=== PATIENT | female | born 1975 | race Caucasian/White ===

== ENCOUNTER 2020-05-05 08:53 | Emergency (ER) | payer BC ==
[2020-05-05] MEDS ORDERED: Sodium Chloride 0.9% 10 ML Syringe FLUSH PRN (09:30)
[2020-05-05] MEDS ORDERED: Ketorolac 30 MG/ML SDV IVPUSH ONE (09:31)
[2020-05-05] MEDS ORDERED: diphenhydrAMINE 50 MG/ML SDV IVPUSH ONE (09:32)
[2020-05-05] MEDS ORDERED: Prochlorperazine 10 MG/2 ML SDV IVPUSH ONE (09:32)
--- NOTE | 2020-05-05 10:59 | EDM.PDOC ---
ED HPI GENERAL MEDICAL PROBLEM - General Chief Complaint: Respiratory Problem Stated Complaint: HEADACHE,COUGH,CHEST TIGHTNESS Time Seen by Provider: 05/05/20 09:09 Source of Information: Reports: Patient History Limitations: Reports: No Limitations - History of Present Illness INITIAL COMMENTS - FREE TEXT/NARRATIVE: The patient presents with chest pain and a cough. This started about 2 weeks ago with the cough. The past couple of days she had some chest pain. She has no history of heart problems. She also has a headache for about a week. She has no numbness or weakness. She is not sure if she has been exposed to COVID 19. She does work at a school. She does have a history of asthma and she is using her inhaler more often. She denies fever or chills. Onset: Gradual Duration: Week(s): Location: Reports: Chest Quality: Reports: Other (tightness) Severity: Mild Improves with: Reports: None Worsens with: Reports: None Associated Symptoms: Reports: Chest Pain, Cough. Denies: Confusion, Fever/Chills, Nausea/Vomiting, Shortness of Breath Headache Pain Score (Numeric/FACES): 6 - Related Data Allergies Allergy/AdvReac Type Severity Reaction Status Date / Time No Known Allergies Allergy Verified 05/05/20 09:11 Home Meds: Home Meds Albuterol [Ventolin HFA] 2 puff INH Q4H PRN 12/06/13 [History] Past Medical History - Past Health History Medical/Surgical History: Denies Medical/Surgical History HEENT History: Reports: Impaired Vision Gastrointestinal History: Reports: Colon Polyp Psychiatric History: Reports: Anxiety, Depression - Past Surgical History GI Surgical History: Reports: Colonoscopy Female Surgical History: Reports: Section Social & Family History - Tobacco Use Smoking Status *Q: Former Smoker Used Tobacco, but Quit: Yes Month/Year Tobacco Last Used: 2019 - Caffeine Use Caffeine Use: Reports: Tea - Recreational Drug Use Recreational Drug Use: No ED ROS GENERAL - Review of Systems Review Of Systems: See Below Constitutional: Reports: No Symptoms HEENT: Reports: No Symptoms Respiratory: Reports: Cough. Denies: Shortness of Breath Cardiovascular: Reports: No Symptoms Endocrine: Reports: No Symptoms GI/Abdominal: Reports: No Symptoms : Reports: No Symptoms ED EXAM, GENERAL - Physical Exam Exam: See Below Exam Limited By: No Limitations General Appearance: Alert, No Apparent Distress Ears: Normal External Exam Nose: Normal Inspection Head: Atraumatic, Normocephalic Neck: Normal Inspection Respiratory/Chest: No Respiratory Distress, Lungs Clear, Normal Breath Sounds Cardiovascular: Regular Rate, Rhythm, No Edema, No Murmur GI/Abdominal: Soft, Non-Tender, No Organomegaly, No Mass Extremities: Normal Inspection Neurological: Alert, Oriented, No Motor/Sensory Deficits EKG INTERPRETATION EKG Date: 05/05/20 Time: 09:56 Rhythm: Other (sinus bradycardia) Rate (Beats/Min): 53 [place]: Normal P-Wave: Present QRS: Normal ST-T: Normal QT: Normal Course - Vital Signs Last Recorded V/S: Last Vital Signs Temp 97.0 F 05/05/20 09:07 Pulse 60 05/05/20 10:46 Resp 16 05/05/20 09:07 BP 115/77 05/05/20 09:07 Pulse Ox 96 05/05/20 10:46 - Orders/Labs/Meds Orders: Active Orders 24 hr Category Date Time Status Cardiac Monitoring [RC] . DIRECTED Care 05/05/20 09:30 Active EKG Documentation Completion [RC] STAT Care 05/05/20 09:31 Active Oxygen Therapy [RC] PRN Care 05/05/20 09:30 Active Peripheral IV Care [RC] . DIRECTED Care 05/05/20 09:31 Active Chest 1V Frontal [CR] Stat Exams 05/05/20 09:31 Taken CORONAVIRUS COVID-19 PCR PHL Stat Lab 05/05/20 09:31 Ordered Sodium Chloride 0.9% [Saline Flush] Med 05/05/20 09:30 Active 10 ml FLUSH ASDIRECTED PRN Peripheral IV Insertion Adult [OM.PC] Stat Oth 05/05/20 09:30 Ordered Medication Orders Sodium Chloride (Saline Flush) 10 ml FLUSH ASDIRECTED PRN PRN Reason: Keep Vein Open Last Admin: 05/05/20 09:52 Dose: 10 ml Documented by: JAMES Labs: Laboratory Tests 05/05/20 05/05/20 05/05/20 Range/Units 09:50 09:50 09:50 WBC 4.45 (3.98-10.04) K/mm3 RBC 4.45 (3.98-5.22) M/mm3 Hgb 14.0 (11.2-15.7) gm/dl Hct 41.4 (34.1-44.9) % MCV 93.0 (79.4-94.8) fl MCH 31.5 (25.6-32.2) pg MCHC 33.8 (32.2-35.5) g/dl RDW Std Deviation 43.4 (36.4-46.3) fL Plt Count 203 (182-369) K/mm3 MPV 10.7 (9.4-12.3) fl Neut % (Auto) 65.1 (34.0-71.1) % Lymph % (Auto) 19.6 (19.3-51.7) % Ross % (Auto) 11.7 (4.7-12.5) % Eos % (Auto) 3.4 (0.7-5.8) Baso % (Auto) 0.2 (0.1-1.2) % Neut # (Auto) 2.90 (1.56-6.13) K/mm3 Lymph # (Auto) 0.87 L (1.18-3.74) K/mm3 Ross # (Auto) 0.52 H (0.24-0.36) K/mm3 Eos # (Auto) 0.15 (0.04-0.36) K/mm3 Baso # (Auto) 0.01 (0.01-0.08) K/mm3 D-Dimer, Quantitative 0.39 (0.19-0.50) mg/L Sodium 137 (136-145) mEq/L Potassium 3.6 (3.5-5.1) mEq/L Chloride 102 (98-107) mEq/L Carbon Dioxide 22 (21-32) mEq/L Anion Gap 16.6 H (5-15) BUN 11 (7-18) mg/dL Creatinine 0.7 (0.55-1.02) mg/dL Est Cr Clr Drug Dosing 98.69 mL/min Estimated GFR (MDRD) > 60 (>60) mL/min BUN/Creatinine Ratio 15.7 (14-18) Glucose 94 (74-106) mg/dL Calcium 9.0 (8.5-10.1) mg/dL Total Bilirubin 0.7 (0.2-1.0) mg/dL AST 40 H (15-37) U/L ALT 59 (14-59) U/L Alkaline Phosphatase 96 (46-116) U/L Troponin I < 0.017 (0.00-0.056) ng/mL Total Protein 7.2 (6.4-8.2) g/dl Albumin 3.6 (3.4-5.0) g/dl Globulin 3.6 gm/dL Albumin/Globulin Ratio 1.0 (1-2) Meds: Medications Generic Name Dose Route Start Last Admin Trade Name Lit PRN Reason Stop Dose Admin Sodium Chloride 10 ml 05/05/20 09:30 05/05/20 09:52 Saline Flush FLUSH 10 ml ASDIRECTED PRN Administration Keep Vein Open Discontinued Medications Generic Name Dose Route Start Last Admin Trade Name Lit PRN Reason Stop Dose Admin Diphenhydramine HCl 50 mg 05/05/20 09:32 05/05/20 09:52 Benadryl IVPUSH 05/05/20 09:33 50 mg ONETIME ONE Administration Ketorolac Tromethamine 30 mg 05/05/20 09:31 05/05/20 09:52 Toradol IVPUSH 05/05/20 09:32 30 mg ONETIME ONE Administration Prochlorperazine Edisylate 10 mg 05/05/20 09:32 05/05/20 09:52 Compazine IVPUSH 05/05/20 09:33 10 mg ONETIME ONE Administration - Re-Assessments/Exams Free Text/Narrative Re-Assessment/Exam: 05/05/20 10:59 I ordered an EKG, IV saline lock, CXR, labs, COVID 19 test, toradol 30mg IV, co mpazine 10mg IV and benadryl 50mg IV. Her EKG shows a NSR with no acute changes. Her CXR shows nothing acute. Her CBC and CMP look good. Her troponin and D-dimer are negative. Departure - Departure Time of Disposition: 11:05 Disposition: Home, Self-Care 01 Condition: Good Clinical Impression: Atypical chest pain, Viral URI Headache Qualifiers: Headache type: other headache syndrome Qualified Code(s): G44.89 - Other headache syndrome - Discharge Information *PRESCRIPTION DRUG MONITORING PROGRAM REVIEWED*: Not Applicable *COPY OF PRESCRIPTION DRUG MONITORING REPORT IN PATIENT LELA: Not Applicable Referrals: Gietzen,Leann, [employer] [Primary Care Provider] - 1 Week Additional Instructions: Drink plenty of fluids. Keep using your inhalers. Isolate yourself until you hear results. Take tylenol or motrin for any fever or pain. Please return if you are worse. Sepsis Event Note (ED) - Evaluation Sepsis Screening Result: No Definite Risk - Focused Exam Vital Signs: Vital Signs Temp Pulse Resp BP Pulse Ox Pulse Ox 05/05/20 10:46 60 96 05/05/20 10:44 96 05/05/20 09:07 97.0 F 66 16 115/77 96 - My Orders Last 24 Hours: My Active Orders 05/05/20 09:30 Cardiac Monitoring [RC] . DIRECTED Oxygen Therapy [RC] PRN Sodium Chloride 0.9% [Saline Flush] 10 ml FLUSH ASDIRECTED PRN Peripheral IV Insertion Adult [OM.PC] Stat 05/05/20 09:31 EKG Documentation Completion [RC] STAT Peripheral IV Care [RC] . DIRECTED Chest 1V Frontal [CR] Stat CORONAVIRUS COVID-19 PCR PHL Stat - Assessment/Plan Last 24 Hours: My Active Orders 05/05/20 09:30 Cardiac Monitoring [RC] . DIRECTED Oxygen Therapy [RC] PRN Sodium Chloride 0.9% [Saline Flush] 10 ml FLUSH ASDIRECTED PRN Peripheral IV Insertion Adult [OM.PC] Stat 05/05/20 09:31 EKG Documentation Completion [RC] STAT Peripheral IV Care [RC] . DIRECTED Chest 1V Frontal [CR] Stat CORONAVIRUS COVID-19 PCR PHL Stat
--- NOTE | 2020-06-06 12:36 | CR ---
PROCEDURE INFORMATION: Exam: XR Chest, 1 View Exam date and time: 05/05/2020 9:18 AM Age: 44 years old Clinical indication: Chest pain TECHNIQUE: Imaging protocol: XR of the chest Views: 1 view. COMPARISON: CT Ang Chest 12/13/2013 5:07 PM FINDINGS: Lungs: Unremarkable. No consolidation. Pleural space: Unremarkable. No pleural effusion. No pneumothorax. Heart/Mediastinum: Unremarkable. No cardiomegaly. Bones/joints: Unremarkable. IMPRESSION: No acute findings. Thank you for allowing us to participate in the care of your patient. Dictated and Authenticated by: Manuel Smith MD 06/06/2020 12:34 PM Central Time ([place] & [place]) [place] [facility]
== END 2020-05-05 11:45 | disposition home or self-care (01) ==
LOC: JD.ED 08:53
DX: R07.89 Other chest pain (principal); J06.9 Acute upper respiratory infection, unspecified; G44.89 Other headache syndrome; J45.909 Unspecified asthma, uncomplicated; Z87.891 Personal history of nicotine dependence; Z20.828 Contact with and (suspected) exposure to other viral communicable diseases
CPT/HCPCS: 36415; 71045; 80053; 84484; 85025; 85379; 87635; 93005; 96374; 96375; 99285; J0780; J1200; J1885; 93010; 99284; U0002

== ENCOUNTER 2021-10-13 01:10 | Emergency (ER) | payer BC ==
[2021-10-13] MEDS ORDERED: Orphenadrine 100 MG Tab.ER PO ONE (02:56)
[2021-10-13] MEDS ORDERED: Ketorolac 30 MG/ML SDV IM ONE (02:56)
== END 2021-10-13 04:23 | disposition home or self-care (01) ==
LOC: JD.ED 01:10
DX: S16.1XXA Strain of muscle, fascia and tendon at neck level, initial encounter (principal); Z79.899 Other long term (current) drug therapy; Z88.8 Allergy status to other drugs, medicaments and biological substances; X50.1XXA Overexertion from prolonged static or awkward postures, initial encounter
CPT/HCPCS: 96372; 99283; A9270; J1885; 99284

== ENCOUNTER 2022-05-22 18:37 | Emergency (ER) | payer BC ==
[2022-05-22 20:22] LABS: ESTIMATED GFR 107 mL/min (>60)
[2022-05-22] MEDS ORDERED: Potassium Chloride 20 MEQ Tab.ER PO ONE (20:59)
== END 2022-05-22 21:00 | disposition left against medical advice (07) ==
LOC: JD.ED 18:37
DX: R20.2 Paresthesia of skin (principal); E87.6 Hypokalemia; F17.210 Nicotine dependence, cigarettes, uncomplicated; E66.9 Obesity, unspecified; Z68.27 Body mass index [BMI] 27.0-27.9, adult; Z88.8 Allergy status to other drugs, medicaments and biological substances; Z79.899 Other long term (current) drug therapy
CPT/HCPCS: 36415; 80053; 85007; 85027; 86140; 99284

== ENCOUNTER 2025-07-03 16:05 | Inpatient (IN) | payer BC ==
[2025-07-03] MEDS ORDERED: Sodium Chloride 0.9% 10 ML Syringe FLUSH PRN (16:26)
[2025-07-03 16:35] LABS: BASOPHILS ABSOLUTE AUTO 0.0 K/mm3 (0.0-0.2); BASOPHILS PERCENT AUTO 0.4 % (0.0-1.0); EOSINOPHILS ABSOLUTE AUTO 0.0 K/mm3 (0.0-0.4); EOSINOPHILS PERCENT AUTO 0.7 % (0.0-6.0); IMMATURE GRAN ABSOLUTE AUTO 0.01 K/mm3 (0.00-0.05); IMMATURE GRAN PERCENT AUTO 0.2 % (0.0-0.4); LYMPHOCYTES ABSOLUTE AUTO 1.2 K/mm3 (1.0-4.8); LYMPHOCYTES PERCENT AUTO 22.4 % (24.0-44.0); MEAN PLATELET VOLUME 10.3 fl (9.4-12.3); MONOCYTES ABSOLUTE AUTO 0.7 K/mm3 (0.0-0.8); MONOCYTES PERCENT AUTO 12.1 % (0.0-8.0); NEUTROPHILS ABSOLUTE AUTO 3.6 K/mm3 (1.8-7.7); NEUTROPHILS PERCENT AUTO 64.2 % (41.0-71.0); NRBC ABSOLUTE 0.02 (0.00-0.02); NRBC PERCENT 0.4 % (0.0-0.2); PLATELET COUNT,PLT 232 K/mm3 (150-400); RED BLOOD CELL COUNT 4.03 M/mm3 (4.10-5.30); WHITE BLOOD CELL COUNT,WBC 5.54 K/mm3 (3.9-11.3)
[2025-07-03 16:52] LABS: A/G RATIO 1.0 (1-2); ALANINE AMINOTRANSFERASE,ALT 76.0 U/L (14-59); ASPARTATE AMNIOTRANSFERASE,AST 211.0 U/L (15-37); BILIRUBIN TOTAL 1.9 mg/dL (0.2-1.0); BLOOD UREA NITROGEN,BUN 10.0 mg/dL (7-18); CARBON DIOXIDE,CO2 27.0 mEq/L (21-32); CHLORIDE,CL 91.0 mEq/L (98-107); CREATININE 0.7 mg/dL (0.55-1.02); EST CRCL DRUG DOSING (CG) 93.5 mL/min; ESTIMATED GFR 105.0 mL/min (>60); GLUCOSE RANDOM 107.0 mg/dL (70-99); PROTEIN TOTAL,TP 8.5 g/dl (6.4-8.2); SODIUM,NA 135.0 mEq/L (136-145)
[2025-07-03 17:01] LABS: POTASSIUM,K 2.4 mEq/L (3.5-5.1)
[2025-07-03 17:04] LABS: LACTIC ACID 3.3 mmol/L (0.4-2.0)
[2025-07-03 17:16] LABS: APPEARANCE,URINE CLEAR (Clear); GLUCOSE,URINE NEGATIVE (Negative); OCCULT BLOOD,URINE NEGATIVE (Negative)
[2025-07-03] MEDS: Sodium Chloride 0.9% 10 ML Syringe FLUSH ONE (17:25)
[2025-07-03] MEDS: Iopamidol 612 MG/ML 100 ML Bottle IVPUSH ONE (17:25)
[2025-07-03] MEDS: Magnesium Sulfat/D5W 1GM/100ML 1 GM in Premix Bag 1 BAG IV ONE (17:27)
[2025-07-03] MEDS: Potassium Bicarbonate/Cit Ac 20 MEQ Effervescent Tab PO ONE (17:34)
[2025-07-03 19:25] LABS: A/G RATIO 1.0 (1-2); ALANINE AMINOTRANSFERASE,ALT 56.0 U/L (14-59); ASPARTATE AMNIOTRANSFERASE,AST 153.0 U/L (15-37); BILIRUBIN TOTAL 1.2 mg/dL (0.2-1.0); BLOOD UREA NITROGEN,BUN 9.0 mg/dL (7-18); CARBON DIOXIDE,CO2 26.0 mEq/L (21-32); CHLORIDE,CL 97.0 mEq/L (98-107); CREATININE 0.7 mg/dL (0.55-1.02); EST CRCL DRUG DOSING (CG) 93.5 mL/min; ESTIMATED GFR 105.0 mL/min (>60); GLUCOSE RANDOM 94.0 mg/dL (70-99); POTASSIUM,K 2.8 mEq/L (3.5-5.1); PROTEIN TOTAL,TP 6.3 g/dl (6.4-8.2); SODIUM,NA 136.0 mEq/L (136-145)
[2025-07-03] MEDS ORDERED: Ketorolac 15 MG/ML SDV IVPUSH PRN (21:23)
[2025-07-03] MEDS ORDERED: Naloxone 0.4 MG/ML SDV IVPUSH PRN (21:23)
[2025-07-04 05:43] LABS: BASOPHILS ABSOLUTE AUTO 0.0 K/mm3 (0.0-0.2); BASOPHILS PERCENT AUTO 0.5 % (0.0-1.0); EOSINOPHILS ABSOLUTE AUTO 0.0 K/mm3 (0.0-0.4); EOSINOPHILS PERCENT AUTO 0.8 % (0.0-6.0); IMMATURE GRAN ABSOLUTE AUTO 0.02 K/mm3 (0.00-0.05); IMMATURE GRAN PERCENT AUTO 0.5 % (0.0-0.4); LYMPHOCYTES ABSOLUTE AUTO 1.0 K/mm3 (1.0-4.8); LYMPHOCYTES PERCENT AUTO 25.6 % (24.0-44.0); MEAN PLATELET VOLUME 10.7 fl (9.4-12.3); MONOCYTES ABSOLUTE AUTO 0.7 K/mm3 (0.0-0.8); MONOCYTES PERCENT AUTO 17.2 % (0.0-8.0); NEUTROPHILS ABSOLUTE AUTO 2.2 K/mm3 (1.8-7.7); NEUTROPHILS PERCENT AUTO 55.4 % (41.0-71.0); NRBC ABSOLUTE 0.00 (0.00-0.02); NRBC PERCENT 0.0 % (0.0-0.2); PLATELET COUNT,PLT 153 K/mm3 (150-400); RED BLOOD CELL COUNT 3.01 M/mm3 (4.10-5.30); WHITE BLOOD CELL COUNT,WBC 3.90 K/mm3 (3.9-11.3)
[2025-07-04 06:23] LABS: A/G RATIO 1.0 (1-2); ALANINE AMINOTRANSFERASE,ALT 48.0 U/L (14-59); ASPARTATE AMNIOTRANSFERASE,AST 145.0 U/L (15-37); BILIRUBIN TOTAL 1.3 mg/dL (0.2-1.0); BLOOD UREA NITROGEN,BUN 9.0 mg/dL (7-18); CARBON DIOXIDE,CO2 25.0 mEq/L (21-32); CHLORIDE,CL 101.0 mEq/L (98-107); CREATININE 0.6 mg/dL (0.55-1.02); EST CRCL DRUG DOSING (CG) 109.08 mL/min; ESTIMATED GFR 109.0 mL/min (>60); GLUCOSE RANDOM 104.0 mg/dL (70-99); POTASSIUM,K 3.1 mEq/L (3.5-5.1); PROTEIN TOTAL,TP 5.4 g/dl (6.4-8.2); SODIUM,NA 136.0 mEq/L (136-145)
[2025-07-04 06:47] LABS: INR 1.1
[2025-07-04 06:49] LABS: PTT,PARTIAL THROMBOPLSTIN TIME 23.4 SECONDS (21.7-31.4)
[2025-07-04] MEDS: Ondansetron 4 MG/2 ML SDV IVPUSH PRN (07:39)
[2025-07-04] MEDS: Potassium Chloride 20 MEQ Tab.ER PO ONE (09:02)
[2025-07-04 10:43] LABS: CHOLESTEROL HDL 49 mg/dL (40-59); CHOLESTEROL LDL DIRECT 52 mg/dL (<100); CHOLESTEROL TOTAL 127 mg/dL (<200)
[2025-07-05 05:49] LABS: BASOPHILS ABSOLUTE AUTO 0.0 K/mm3 (0.0-0.2); BASOPHILS PERCENT AUTO 0.3 % (0.0-1.0); EOSINOPHILS ABSOLUTE AUTO 0.1 K/mm3 (0.0-0.4); EOSINOPHILS PERCENT AUTO 1.6 % (0.0-6.0); IMMATURE GRAN ABSOLUTE AUTO 0.01 K/mm3 (0.00-0.05); IMMATURE GRAN PERCENT AUTO 0.3 % (0.0-0.4); LYMPHOCYTES ABSOLUTE AUTO 1.0 K/mm3 (1.0-4.8); LYMPHOCYTES PERCENT AUTO 30.4 % (24.0-44.0); MEAN PLATELET VOLUME 10.9 fl (9.4-12.3); MONOCYTES ABSOLUTE AUTO 0.5 K/mm3 (0.0-0.8); MONOCYTES PERCENT AUTO 14.3 % (0.0-8.0); NEUTROPHILS ABSOLUTE AUTO 1.7 K/mm3 (1.8-7.7); NEUTROPHILS PERCENT AUTO 53.1 % (41.0-71.0); NRBC ABSOLUTE 0.00 (0.00-0.02); NRBC PERCENT 0.0 % (0.0-0.2); PLATELET COUNT,PLT 138 K/mm3 (150-400); RED BLOOD CELL COUNT 2.90 M/mm3 (4.10-5.30); WHITE BLOOD CELL COUNT,WBC 3.22 K/mm3 (3.9-11.3)
[2025-07-05 06:01] LABS: A/G RATIO 0.9 (1-2); ALANINE AMINOTRANSFERASE,ALT 50.0 U/L (14-59); ASPARTATE AMNIOTRANSFERASE,AST 150.0 U/L (15-37); BILIRUBIN TOTAL 1.0 mg/dL (0.2-1.0); BLOOD UREA NITROGEN,BUN 5.0 mg/dL (7-18); CARBON DIOXIDE,CO2 23.0 mEq/L (21-32); CHLORIDE,CL 103.0 mEq/L (98-107); CREATININE 0.5 mg/dL (0.55-1.02); EST CRCL DRUG DOSING (CG) 130.9 mL/min; ESTIMATED GFR 114.0 mL/min (>60); GLUCOSE RANDOM 102.0 mg/dL (70-99); POTASSIUM,K 3.2 mEq/L (3.5-5.1); PROTEIN TOTAL,TP 5.2 g/dl (6.4-8.2); SODIUM,NA 137.0 mEq/L (136-145)
[2025-07-05] MEDS: Potassium Chloride 20 MEQ Tab.ER PO ONE (09:01)
== END 2025-07-05 11:25 | disposition home or self-care (01) | DRG 282 ==
LOC: JD.ED 16:05 → JD.MS 21:14
PROVIDERS: ADMIT Family Medicine; ATTEND Family Medicine
DX: K85.20 Alcohol induced acute pancreatitis without necrosis or infection (principal); K80.20 Calculus of gallbladder without cholecystitis without obstruction; K70.10 Alcoholic hepatitis without ascites; R16.0 Hepatomegaly, not elsewhere classified; K76.0 Fatty (change of) liver, not elsewhere classified; E86.0 Dehydration; E87.6 Hypokalemia; K21.9 Gastro-esophageal reflux disease without esophagitis; H54.7 Unspecified visual loss; F17.200 Nicotine dependence, unspecified, uncomplicated; J45.909 Unspecified asthma, uncomplicated; F41.9 Anxiety disorder, unspecified; F32.A Depression, unspecified; E66.9 Obesity, unspecified; Z68.28 Body mass index [BMI] 28.0-28.9, adult; Z98.890 Other specified postprocedural states; Z79.899 Other long term (current) drug therapy; Z98.891 History of uterine scar from previous surgery
CPT/HCPCS: 36415; 74177; 74177-26; 80053; 80061; 81003; 83605; 83690; 83735; 85025; 85610; 85730; 93010; 96365; 96367; 96368; 96375; 99222; 99223; 99231; 99239; 99285; 99285-25; A9270-GY; J1308; J2405; J3475; J3480; J7030; Q9967